=== PATIENT | female | born 1960 | race Caucasian/White ===

== ENCOUNTER 2023-07-25 06:53 | Inpatient (IN) ==
[2023-07-25] MEDS ORDERED: IOPAMIDOL 100 ML BOTTLE IV ONE ×2 (06:54)
[2023-07-25] MEDS ORDERED: ONDANSETRON 4 MG/2 ML VIAL IV ONE ×2 (07:13→09:33)
[2023-07-25 07:51] LABS: POC Calcium, Ionized 1.17 (1.16-1.32); POC Creatinine 1.4 (0.6-1.2); POC Potassium 5.4 (3.3-5.1)
[2023-07-25 08:22] LABS: Hematocrit 51.8 % (34.1-44.9); Hemoglobin 16.8 g/dL (11.2-15.7); Mean Cell Volume 98.9 fL (80.0-100.0); Mean Corpuscular HGB Conc 32.4 g/dL (31.0-36.0); Mean Platelet Volume 9.8 fL (8.8-12.5); Platelet Count 354 K/mcL (140-440); RBC 5.24 M/mcL (3.59-5.38); Red Cell Distribution Width 12.7 % (11.5-14.5)
[2023-07-25 08:51] LABS: Lymphocytes % 30 % (15-49); Monocytes % (Manual) 7 % (1-12); Platelet Estimate NORMAL (Normal); RBC Morphology NORMAL (Normal); Reactive Lymphocytes 6 % (0-2); Segmented Neutrophils % 56 % (38-78)
[2023-07-25 08:52] LABS: ALT/SGPT 15 U/L (<40); AST/SGOT 26 U/L (<32); Albumin 2.7 gm/dL (3.2-5.2); Alkaline Phosphatase 134 U/L (39-117); Bilirubin,Direct 0.2 mg/dL (<0.3); Bilirubin,Total 0.7 mg/dL (0.1-1.0); Globulin 3.8 gm/dL (2.2-3.7)
[2023-07-25] MEDS ORDERED: 0.9 % SODIUM CHLORIDE 500 ML IV ONE (09:33)
[2023-07-25] MEDS ORDERED: HEPARIN 5,000 UNIT/ML VIAL IV ONE ×2 (12:21→12:46)
[2023-07-25] MEDS: HEPARIN SOD,PORK IN 0.45% NACL 25,000 UNIT in PREMIX 1 BAG IV SCH (12:59)
[2023-07-25 14:17] LABS: proBNP 478.1 pg/mL (<125.0)
[2023-07-25] MEDS ORDERED: SENNOSIDES 1 TABLET PO PRN (16:50)
[2023-07-25] MEDS ORDERED: PROMETHAZINE 25 MG/ML VIAL IV PRN (16:50)
[2023-07-25] MEDS: LACTATED RINGERS 1,000 ML IV SCH (17:17)
[2023-07-25] MEDS: 0.9 % SODIUM CHLORIDE 10 ML SYRINGE IV SCH (22:51)
[2023-07-26] MEDS ORDERED: HEPARIN SOD,PORK IN 0.45% NACL 500 ML IV ONE ×2 (05:04→23:00)
[2023-07-26] MEDS: HEPARIN SOD,PORK IN 0.45% NACL 25,000 UNIT in PREMIX 1 BAG IV SCH ×3 (05:09→23:05)
[2023-07-26 05:54] LABS: Basophils # (Auto) 0.07 K/mcL (0.00-0.30); Basophils % (Auto) 0.8 % (0.0-2.0); Eosinophils # (Auto) 0.05 K/mcL (0.00-0.70); Eosinophils % (Auto) 0.5 % (0.0-7.0); Hematocrit 40.1 % (34.1-44.9); Hemoglobin 13.2 g/dL (11.2-15.7); Lymphocytes # (Auto) 2.65 K/mcL (1.50-4.80); Lymphocytes % (Auto) 29.1 % (15.5-49.0); Mean Cell Volume 97.1 fL (80.0-100.0); Mean Corpuscular HGB Conc 32.9 g/dL (31.0-36.0); Mean Platelet Volume 9.9 fL (8.8-12.5); Monocytes # (Auto) 0.83 K/mcL (0.10-0.90); Monocytes % (Auto) 9.1 % (1.0-12.0); Neutrophils % (Auto) 59.2 % (38.0-78.0); Platelet Count 344 K/mcL (140-440); RBC 4.13 M/mcL (3.59-5.38); Red Cell Distribution Width 12.7 % (11.5-14.5); WBC 9.1 K/mcL (4.5-11.0)
[2023-07-26] MEDS: 0.9 % SODIUM CHLORIDE 10 ML SYRINGE IV SCH ×3 (05:57→22:05)
[2023-07-26 06:25] LABS: ALT/SGPT 6 U/L (<40); AST/SGOT 17 U/L (<32); Albumin 2.5 gm/dL (3.2-5.2); Albumin/Globulin Ratio 0.9 (1.0-2.3); Alkaline Phosphatase 101 U/L (39-117); Bilirubin,Total 0.6 mg/dL (0.1-1.0); Blood Urea Nitrogen 16 mg/dL (8-23); Calcium 8.5 mg/dL (8.6-10.4); Carbon Dioxide 19 mmol/L (22-30); Chloride 92 mmol/L (96-108); Globulin 2.8 gm/dL (2.2-3.7); Glomerular Filtration Rate 77; Glucose 77 mg/dL (70-105)
[2023-07-26] MEDS: PANTOPRAZOLE 40 MG TABLET PO SCH (08:03)
[2023-07-26] MEDS: ONDANSETRON 4 MG/2 ML VIAL IV PRN ×2 (08:12→15:17)
[2023-07-26] MEDS: LACTATED RINGERS 1,000 ML IV SCH (11:09)
[2023-07-26] MEDS: HYDROmorphone 0.5 MG/0.5 ML SYRINGE IV PRN (14:32)
[2023-07-26] MEDS ORDERED: POLYETHYLENE GLYCOL 3350 17 GM PACKET PO PRN (14:33)
[2023-07-26] MEDS ORDERED: HYDROcodone/APAP (PP) 7.5/325MG TABLET (#4) PO PRN (14:33)
[2023-07-26] MEDS ORDERED: MECLIZINE 25 MG TABLET PO PRN (14:41)
[2023-07-26] MEDS ORDERED: guaiFENesin 600 MG TAB.SR.12H PO PRN (14:42)
[2023-07-26] MEDS ORDERED: PSEUDOEPHEDRINE 30 MG TABLET PO PRN (14:43)
[2023-07-26] MEDS: PRIMIDONE 50 MG TABLET PO SCH (15:11)
[2023-07-26] MEDS: PROPRANOLOL 60 MG CAP.XL.24H PO SCH (15:11)
[2023-07-26] MEDS: HYDROCODONE/APAP 7.5/325MG TABLET PO PRN (21:39)
[2023-07-27] MEDS: ONDANSETRON 4 MG/2 ML VIAL IV PRN ×2 (03:13→13:55)
[2023-07-27] MEDS: HYDROCODONE/APAP 7.5/325MG TABLET PO PRN ×3 (03:16→20:57)
[2023-07-27] MEDS: HEPARIN SOD,PORK IN 0.45% NACL 25,000 UNIT in PREMIX 1 BAG IV SCH ×2 (05:08→19:41)
[2023-07-27] MEDS: 0.9 % SODIUM CHLORIDE 10 ML SYRINGE IV SCH ×3 (05:25→21:11)
[2023-07-27 05:56] LABS: Basophils # (Auto) 0.04 K/mcL (0.00-0.30); Basophils % (Auto) 0.5 % (0.0-2.0); Eosinophils # (Auto) 0.07 K/mcL (0.00-0.70); Eosinophils % (Auto) 0.9 % (0.0-7.0); Hematocrit 34.6 % (34.1-44.9); Hemoglobin 11.7 g/dL (11.2-15.7); Lymphocytes # (Auto) 2.23 K/mcL (1.50-4.80); Lymphocytes % (Auto) 29.7 % (15.5-49.0); Mean Cell Volume 95.6 fL (80.0-100.0); Mean Corpuscular HGB Conc 33.8 g/dL (31.0-36.0); Mean Platelet Volume 9.8 fL (8.8-12.5); Monocytes # (Auto) 0.75 K/mcL (0.10-0.90); Platelet Count 306 K/mcL (140-440); RBC 3.62 M/mcL (3.59-5.38); Red Cell Distribution Width 12.5 % (11.5-14.5); WBC 7.5 K/mcL (4.5-11.0)
[2023-07-27 06:07] LABS: ALT/SGPT 12 U/L (<40); AST/SGOT 15 U/L (<32); Albumin 2.5 gm/dL (3.2-5.2); Alkaline Phosphatase 88 U/L (39-117); Bilirubin,Total 0.6 mg/dL (0.1-1.0); Blood Urea Nitrogen 11 mg/dL (8-23); Calcium 8.4 mg/dL (8.6-10.4); Carbon Dioxide 21 mmol/L (22-30); Chloride 96 mmol/L (96-108); Globulin 2.6 gm/dL (2.2-3.7); Glomerular Filtration Rate 91; Glucose 65 mg/dL (70-105)
[2023-07-27] MEDS: HYDROmorphone 0.5 MG/0.5 ML SYRINGE IV PRN ×3 (06:36→23:33)
[2023-07-27] MEDS: PANTOPRAZOLE 40 MG TABLET PO SCH (07:47)
[2023-07-27] MEDS: FUROSEMIDE 20 MG TABLET PO SCH (08:50)
[2023-07-27] MEDS: PROPRANOLOL 60 MG CAP.XL.24H PO SCH (08:52)
[2023-07-27] MEDS: PRIMIDONE 50 MG TABLET PO SCH (08:52)
[2023-07-27] MEDS: HEPARIN 5,000 UNIT/ML VIAL IV SCH (14:37)
[2023-07-27] MEDS: SODIUM CHLORIDE 1 GM TABLET PO SCH ×2 (17:00→21:11)
[2023-07-27] MEDS ORDERED: HEPARIN SOD,PORK IN 0.45% NACL 500 ML IV ONE (19:40)
[2023-07-28] MEDS: 0.9 % SODIUM CHLORIDE 10 ML SYRINGE IV SCH ×3 (04:32→23:24)
[2023-07-28] MEDS: HYDROCODONE/APAP 7.5/325MG TABLET PO PRN ×4 (05:09→20:31)
[2023-07-28 06:13] LABS: ALT/SGPT 12 U/L (<40); AST/SGOT 14 U/L (<32); Albumin 2.7 gm/dL (3.2-5.2); Alkaline Phosphatase 94 U/L (39-117); Bilirubin,Direct 0.2 mg/dL (<0.3); Bilirubin,Total 0.5 mg/dL (0.1-1.0); Blood Urea Nitrogen 11 mg/dL (8-23); Calcium 8.1 mg/dL (8.6-10.4); Carbon Dioxide 25 mmol/L (22-30); Chloride 92 mmol/L (96-108); Globulin 2.8 gm/dL (2.2-3.7); Glomerular Filtration Rate 91; Glucose 90 mg/dL (70-105); Lactate Dehydrogenase 311 U/L (135-225); Phosphorous 2.3 mg/dL (2.5-4.5); Triglycerides 105 mg/dL (<150)
[2023-07-28] MEDS: PANTOPRAZOLE 40 MG TABLET PO SCH (07:39)
[2023-07-28] MEDS: HYDROmorphone 0.5 MG/0.5 ML SYRINGE IV PRN ×4 (07:39→23:21)
[2023-07-28] MEDS: ONDANSETRON 4 MG/2 ML VIAL IV PRN ×3 (08:07→23:30)
[2023-07-28] MEDS: FUROSEMIDE 20 MG TABLET PO SCH (09:40)
[2023-07-28] MEDS: SODIUM CHLORIDE 1 GM TABLET PO SCH (09:41)
[2023-07-28] MEDS: PHOSPHORUS 250 MG TABLET PO SCH ×2 (09:41→20:31)
[2023-07-28] MEDS: PROPRANOLOL 60 MG CAP.XL.24H PO SCH (09:41)
[2023-07-28] MEDS: NEUTRA PHOS 1 PACKET PO SCH ×2 (09:41→20:30)
[2023-07-28] MEDS: PRIMIDONE 50 MG TABLET PO SCH (09:42)
[2023-07-28] MEDS: APIXABAN 5 MG TABLET PO SCH ×2 (10:57→20:31)
[2023-07-28] MEDS: HEPARIN SOD,PORK IN 0.45% NACL 25,000 UNIT in PREMIX 1 BAG IV SCH (12:39)
[2023-07-28] MEDS: HEPARIN 5,000 UNIT/ML VIAL IV SCH (17:03)
[2023-07-29] MEDS: ONDANSETRON 4 MG/2 ML VIAL IV PRN ×2 (03:59→11:53)
[2023-07-29] MEDS: HYDROCODONE/APAP 7.5/325MG TABLET PO PRN ×2 (04:21→08:31)
[2023-07-29] MEDS: 0.9 % SODIUM CHLORIDE 10 ML SYRINGE IV SCH (04:22)
[2023-07-29 07:15] LABS: Blood Urea Nitrogen 13 mg/dL (8-23); Calcium 8.1 mg/dL (8.6-10.4); Carbon Dioxide 25 mmol/L (22-30); Chloride 91 mmol/L (96-108); Glomerular Filtration Rate 77; Glucose 97 mg/dL (70-105)
[2023-07-29] MEDS ORDERED: POTASSIUM CHLORIDE 20 MEQ TABLET PO ONE (07:49)
[2023-07-29] MEDS: FUROSEMIDE 20 MG TABLET PO SCH (08:30)
[2023-07-29] MEDS: PROPRANOLOL 60 MG CAP.XL.24H PO SCH (08:31)
[2023-07-29] MEDS: PRIMIDONE 50 MG TABLET PO SCH (08:31)
[2023-07-29] MEDS: PANTOPRAZOLE 40 MG TABLET PO SCH (08:31)
[2023-07-29] MEDS: APIXABAN 5 MG TABLET PO SCH (08:31)
[2023-07-30] MEDS ORDERED: PROPRANOLOL PO SCH (09:00)
[2023-08-02] MEDS ORDERED: ALENDRONATE SODIUM 70 MG TABLET PO SCH (09:00)
[2023-08-04] MEDS ORDERED: APIXABAN 5 MG TABLET PO SCH (09:00)
== END 2023-07-29 15:20 | DRG 176 ==
LOC: ED 06:53 → ICU 16:45
PROVIDERS: ADMIT Internal Medicine; ATTEND Internal Medicine